=== PATIENT | female | born 1960 | race American Indian/Alaskan Native ===

== ENCOUNTER 2017-11-04 12:20 | Outpatient (CLI) | payer BC ==
--- NOTE | 2017-11-04 16:51 | Magnetic Resonance Report ---
MRI ABDOMEN WITHOUT AND WITH CONTRAST : 11/04/17 CLINICAL: Epigastric pain which has been persistent for 2 years. COMPARISON :None. TECHNIQUE: Axial T1 in phase and opposed phase, coronal and axial T2 and axial T2 fat sat sequences plus multiphase postcontrast T1 fat sat sequences on a 1.5 Catherine magnet. 15.0 cc of Multihance was injected intravenously for the contrast portion of the exam and consent was obtained prior to the administration of the contrast. FINDINGS: Normal liver size, contour and signal. No liver mass. Normal gallbladder and bile ducts. Normal stomach, distal esophagus, duodenum, pancreas and spleen. Normal adrenal glands. The renal collecting systems and ureters are nondilated. The kidneys are normal size and demonstrate normal enhancement. A 1.2 cm right upper pole renal cyst. No solid mass. Normal aorta and inferior vena cava. The imaged portions of small bowel and colon are normal. No ascites. The anterior abdominal wall is intact with no ventral hernia. The bones and soft tissues are normal. IMPRESSION: Normal study except for a 1.2 cm right upper pole benign renal cyst.
== END 2017-11-04 12:21 | disposition home or self-care (01) ==
LOC: SPVIMAG 12:20
PROVIDERS: ATTEND Family Medicine
DX: N28.1 Cyst of kidney, acquired (principal)
CPT/HCPCS: 74183; A9577